=== PATIENT | male | born 1975 | race Caucasian/White ===

== ENCOUNTER 2016-07-03 18:50 | Inpatient (IN) | payer BC, MEDICAID ==
[2016-07-03] MEDS ORDERED: IOPAMIDOL 370 (76%) 100 ML VIAL IV ONE (18:51)
[2016-07-03 20:27] LABS: ABSOLUTE NEUTROPHIL COUNT 6.2 K/mm3 (1.8-7.7); BASO # 0.1 K/mm3 (0.0-0.2); BASO % 0.8 % (0.2-1.0); EOS # 0.1 (0.0-0.5); HEMATOCRIT 43.1 % (32.0-52.0); HEMOGLOBIN 14.3 gm/l (14.0-18.0); IMM NEUT # 0.1 K/mm3 (0-0.2); IMM NEUT% 0.5 % (0-1); LYMPH # 2.7 (1.0-4.8); LYMPH % 27.4 % (15-45); MEAN CELL VOLUME 93.5 fl (80.0-94.0); MEAN CORPUSCULAR HGB CONC 33.2 g/dl (33.0-37.0); MEAN PLATELET VOLUME 9.2 fl (7.4-10.4); MONO # 0.7 (0.0-0.8); NEUT % 63.3 % (43-75); PLATELET COUNT 286 K/mm3 (130-400)
[2016-07-03] MEDS ORDERED: MORPHINE SULFATE 4 MG/ML SYRINGE ONE ×3 (20:29→21:16)
[2016-07-03 20:47] LABS: ALB/GLOB RATIO 1.4 (>1.0); ALBUMIN 4.3 gm/dL (3.5-5.7); CALCIUM 8.6 mg/dL (8.6-10.3); MAGNESIUM 1.4 mg/dL (1.9-2.7)
[2016-07-03 20:52] LABS: TROPONIN I < 0.01 ng/ml (0.0-0.06)
[2016-07-03 20:56] LABS: CKMB ISOENZYME 1.4 ng/ml (0.6-6.3)
[2016-07-03] MEDS ORDERED: MAGNESIUM SULFATE 1 G/100 ML 100 ML IV ONE (20:59)
[2016-07-03] MEDS ORDERED: ONDANSETRON 4 MG/2ML 2 ML VIAL ONE (21:49)
[2016-07-03] MEDS ORDERED: FAMOTIDINE 10 MG/ML 2ML VIAL ONE (22:11)
[2016-07-03 22:27] LABS: SPECIFIC GRAVITY 1.015 (1.001-1.030); URINE BILIRUBIN NEGATIVE (NEGATIVE); URINE BLOOD NEGATIVE (NEGATIVE); URINE GLUCOSE (UA) NEGATIVE (NEGATIVE); URINE LEUKOCYTE ESTERASE NEGATIVE (NEGATIVE); URINE NITRITE NEGATIVE (NEGATIVE); URINE PROTEIN NEGATIVE (NEGATIVE); URINE UROBILINOGEN NORMAL (0-1 mg/dl)
[2016-07-03 22:30] LABS: URINE APPEARANCE CLEAR; URINE COLOR YELLOW
[2016-07-03] MEDS ORDERED: BISACODYL 5 MG TABLET.EC PO PRN (22:56)
[2016-07-03] MEDS ORDERED: BLISTEX LIPSTICK 1 EACH TP PRN (22:56)
[2016-07-03] MEDS ORDERED: BISACODYL 10 MG SUP PR PRN (22:56)
[2016-07-03] MEDS ORDERED: SODIUM CHLORIDE 0.9% 100 ML IV PRN (22:56)
[2016-07-03] MEDS ORDERED: MENTHOL/CETYLPYRD 1 EACH LOZENGE PO PRN (22:56)
[2016-07-03 23:15] VITALS: BMI 31.8
[2016-07-03] MEDS: SODIUM CHLORIDE 0.9% 1,000 ML IV SCH (23:32)
[2016-07-03] MEDS: PANTOPRAZOLE SODIUM 40 MG VIAL IV SCH (23:32)
[2016-07-03] MEDS: HYDROMORPHONE HCL 1 MG/ML SYRINGE IV PRN (23:32)
[2016-07-04 00:09] LABS: AMPHETAMINES/METHAMPHETAMINES NEGATIVE (NEGATIVE); COCAINE NEGATIVE (NEGATIVE); MARIJUANA NEGATIVE (NEGATIVE); METHADONE NEGATIVE (NEGATIVE); OPIATES POSITIVE (NEGATIVE); TRICYCLIC ANTIDEPRESSANTS NEGATIVE (NEGATIVE)
[2016-07-04] MEDS: LORAZEPAM 2 MG/ML 1ML SDV IV PRN ×2 (00:38→04:14)
[2016-07-04] MEDS: HYDROMORPHONE HCL 1 MG/ML SYRINGE IV PRN ×7 (03:41→20:26)
[2016-07-04] MEDS: ONDANSETRON 4 MG/2ML 2 ML VIAL IV PRN ×4 (03:41→19:10)
[2016-07-04] MEDS: SODIUM CHLORIDE 0.9% 1,000 ML IV SCH ×5 (03:41→21:02)
[2016-07-04 06:09] LABS: HEMATOCRIT 37.6 % (32.0-52.0); HEMOGLOBIN 12.7 gm/l (14.0-18.0); MEAN CELL VOLUME 94.9 fl (80.0-94.0); MEAN CORPUSCULAR HEMOGLOBIN 32.1 pg (27.0-31.0); MEAN CORPUSCULAR HGB CONC 33.8 g/dl (33.0-37.0); RED CELL DISTRIBUTION WIDTH 12.2 % (11.5-14.5)
--- NOTE | 2016-07-04 06:40 | HP ---
Ok Saunders ADMIT DATE: 07/03/2016 CHIEF COMPLAINT: Abdominal pain. HISTORY OF PRESENT ILLNESS: Ok is a 40-year-old otherwise healthy male. He presented to the emergency room with about a 12 hour history of mid epigastric abdominal pain that has become severe. He has never had pain like this before. It has been associated with some nausea. No fevers, no chills, no diarrhea. Really no other complaints. In the emergency room he was worked up and found to have evidence of pancreatitis on both lab work and on CT. He was subsequently admitted to the hospitalist service for further treatment. REVIEW OF SYSTEMS: As noted above otherwise, negative. PAST MEDICAL HISTORY: None. PAST SURGICAL HISTORY: Spine surgery back in 2007. ALLERGIES: None. 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 SOCIAL HISTORY: He is with three young children at home. No tobacco use. He does occasionally drink alcohol, last time he drank alcohol was on Saturday (two days prior to this admission). No history of withdraw. FAMILY HISTORY: Mother with hypertension. Father with hypertension and a stroke. OBJECTIVE: VITAL SIGNS: Temperature 98.5, pulse 70, blood pressure 177/114, respirations 20, O2 sat 97% on room air. GENERAL: This is a well developed, well-nourished middle aged male. He does display pain behavior, but is able to answer questions appropriately. HEENT: Normocephalic. TM's are clear. Sclerae are anicteric. Orophyarnx: Mucosa is moist, no lesions. NECK: Supple without lymphadenopathy. LUNGS: Clear. HEART: Regular. ABDOMEN: He is exquisitely tender to palpation in the mid epigastrium. Does have voluntary guarding noted. Bowel tones are positive. No masses. EXTREMITIES: No edema. LABORATORY: CBC with a white count of 9.8, hemoglobin 14.3, hematocrit 43.1, platelets of 286. Chemistry panel, sodium 136, potassium 3.3, chloride 98, carbon dioxide 26, BUN 11, creatinine 0.9, glucose of 105, calcium 8.6, magnesium 1.4, total bilirubin 0.4, AST 24, ALT 23, alk phos 38, lipase is elevated at 90. Urinalysis is clear. DIAGNOSTICS: CT scan by verbal report has stranding around the head of the pancreas, I am awaiting official written report to review. ASSESSMENT: 1. Acute pancreatitis, alcohol induced versus idiopathic versus ?. Will go ahead and check lipid panel in the morning. Supportive care tonight with ice chips and sips of liquid only. IV medications for pain and nausea as needed. He does have a history of reflux symptoms. We will place him on twice daily intravenous proton pump inhibitor therapy as well. 2. Alcohol use. This may be a trigger for the above. No history of withdraw. We will hold off on placing him on CIWA protocol at this point though we will watch him closely and if he does display any signs or symptoms of withdraw we will initiate immediately. 3. Hypertension secondary to above. We will get his pain under control and monitor. I suspect once he is more comfortable his blood pressure should be improved. 4. Deep venous thrombosis prophylaxis is not indicated as the patient is fully ambulatory. Further care is dictated by clinic course. JOB: [id number]
[2016-07-04 06:50] LABS: ALB/GLOB RATIO 1.3 (>1.0); ALBUMIN 3.6 gm/dL (3.5-5.7); CALCIUM 7.6 mg/dL (8.6-10.3); CHOLESTEROL RISK RATIO 2.4 (4.0-6.7)
--- NOTE | 2016-07-04 08:15 | CT ---
ADDENDUM #1 IMPRESSION: 1. Acute pancreatitis of the head of the pancreas versus duodenitis. ORIGINAL REPORT ABD/PELVIS W/ CON COMPARISON: Abdomen ultrasound, 02/23/2012 HISTORY: Worsening epigastric pain that started earlier today, with chills, nausea, mild vomiting, diarrhea, and constipation. Normal white blood cell count. Elevated lipase. Decreased magnesium. Technique: No oral contrast. Intravenous injection 100 mL Isovue 370. Using a [employer] Aquilion [address], images were obtained from the diaphragm to the floor the pelvis. An automated dose reduction technique was used to minimize patient radiation dose. Dose information: CTDIvol (mGy): 13.00 DLP(mGycm): 663.90 FINDINGS: Lung bases: Normal. Inferior mediastinum and heart: Normal. Liver: Normal. Gallbladder:Normal. Bile ducts: Normal. Pancreas: Edema within and surrounding the head of the pancreas and the adjacent second portion of the duodenum. Spleen: Normal. Adrenal glands: Normal. Kidneys: Normal. Ureters: Normal Urinary bladder: Normal. Prostate gland and seminal vesicles: Normal. Blood vessels: Normal Lymph nodes: Normal Stomach: Normal Duodenum: Normal Small intestine: Normal Appendix: Not visible. Colon: Normal Abdominal wall and supporting musculature: Normal Bones: L5-S1 moderate disc narrowing. IMPRESSION: 1. Appendicitis of the head of the appendix versus duodenitis. Preliminary report by statrad radiologist Merced Carlos MD 07/03/2016 at 22:16
--- NOTE | 2016-07-04 08:15 | RAD ---
CHEST - 1 VIEW COMPARISON: None HISTORY: Chest pain. FINDINGS: Views: Frontal chest. Lungs: The lungs are clear. Heart and vessels: Normal Trachea and bronchi: Normal Mediastinum and matthew: Normal Costophrenic sulci: Normal Chest wall and bones: Normal Upper abdomen: Normal. IMPRESSION: Negative one view chest.
--- NOTE | 2016-07-04 08:20 | PDOC43 ---
- Subjective Chief Complaint: Abd Pain Still with severe abd pain this AM- adequate control with IV meds. Subjective: Denies Shortness of Breath, Denies Cough, Denies Chest Pain, Denies Vomiting, Denies Fever, Denies Chills - Objective Vital Signs Temperature 98.1 F 07/04/16 06:52 Pulse Rate 72 07/04/16 06:52 Respiratory Rate 16 07/04/16 08:11 Blood Pressure 184/122 07/04/16 06:52 O2 Saturation by Pulse Oximetry 96 07/04/16 06:52 Oxygen Delivery Method Room Air Oxygen Flow Rate 0 Intake and Output 07/03/16 07/04/16 07/05/16 06:59 06:59 06:59 Intake Total 1507 Balance 1507 General: Alert, Oriented x3, Cooperative, No Acute Distress HEENT: Atraumatic Lungs: Clear to Auscultation Bilaterally Cardiovascular: Regular Rate and Rhythm Abdomen: Soft, Tenderness (Diffuse tenderness centered around mid-epigastrum.), Normal Bowel Sounds, Non-Distended Extremities: Normal Pulses, No Edema Laboratory 07/04/16 05:30 07/04/16 05:30 Laboratory Tests 07/03/16 07/04/16 20:15 05:30 Triglycerides 187 H Cholesterol 163 Cholesterol Risk Factr 2.4 L LDL Cholesterol 57 L VLDL Cholesterol 37 HDL Cholesterol 69 Lipase 90 H 104 H Current Medications: Current meds reviewed in EMR. - Problems: Assessment/Plan (1) Pancreatitis Qualifiers: Chronicity: acute Pancreatitis type: unspecified pancreatitis type Acute pancreatitis complication: no infection or necrosis Qualifier Code: ( K85.90) Acute pancreatitis without necrosis or infection, unspecified Status : AcuteAssessment/Plan: Acute pancreatitis. Etiology is presumed Etoh-ic vs idiopathic. Con't supportive care with aggressive IVF, IV meds for pain/nausea. (2) HTN (hypertension) Qualifiers: Hypertension type: essential hypertension Qualifier Code: (I10) Essential (primary) hypertension Status: ChronicAssessment/Plan: Still significantly elevated in spite of pain relief. Start IV metoprolol. VTE Prophylaxis: Lovenox Disposition: Anticipate d/c home in 2-3 days
[2016-07-04] MEDS: METOPROLOL TARTRATE 1 MG/ML 5ML VIAL IV SCH ×3 (08:51→20:25)
[2016-07-04] MEDS: PANTOPRAZOLE SODIUM 40 MG VIAL IV SCH ×2 (11:28→23:26)
[2016-07-04] MEDS ORDERED: ENALAPRILAT DIHYDRATE 1.25 MG/ML 1ML VIAL IV SCH (12:05)
[2016-07-04] MEDS ORDERED: ENALAPRILAT DIHYDRATE 1.25 MG/ML 1ML VIAL IV ONE (13:32)
[2016-07-04] MEDS: HYDROMORPHONE HCL 2 MG/ML SYRINGE IV PRN (22:18)
[2016-07-05] MEDS: HYDROMORPHONE HCL 2 MG/ML SYRINGE IV PRN ×3 (00:31→05:25)
[2016-07-05] MEDS: ENALAPRILAT DIHYDRATE 1.25 MG/ML 1ML VIAL IV SCH ×2 (00:31→12:53)
[2016-07-05] MEDS: SODIUM CHLORIDE 0.9% 1,000 ML IV SCH ×4 (01:34→12:26)
[2016-07-05] MEDS: METOPROLOL TARTRATE 1 MG/ML 5ML VIAL IV SCH ×4 (02:15→18:17)
[2016-07-05 06:12] LABS: HEMATOCRIT 35.5 % (32.0-52.0); HEMOGLOBIN 11.5 gm/l (14.0-18.0); MEAN CELL VOLUME 99.2 fl (80.0-94.0); MEAN CORPUSCULAR HEMOGLOBIN 32.1 pg (27.0-31.0); MEAN CORPUSCULAR HGB CONC 32.4 g/dl (33.0-37.0); RED CELL DISTRIBUTION WIDTH 12.5 % (11.5-14.5)
[2016-07-05 06:29] LABS: ALB/GLOB RATIO 1.3 (>1.0); ALBUMIN 3.6 gm/dL (3.5-5.7); CALCIUM 7.5 mg/dL (8.6-10.3)
[2016-07-05] MEDS: PANTOPRAZOLE SODIUM 40 MG VIAL IV SCH ×2 (10:24→23:10)
[2016-07-05] MEDS: ONDANSETRON 4 MG/2ML 2 ML VIAL IV PRN ×2 (10:28→23:10)
[2016-07-05] MEDS: HYDROMORPHONE HCL 1 MG/ML SYRINGE IV PRN ×2 (10:30→23:10)
--- NOTE | 2016-07-05 11:59 | PDOC43 ---
- Subjective Chief Complaint: Abd Pain Patient reported to be nauseated and had some pain this am, although lipase normal. Pain med helpful. Still on sips and chips, - Objective Vital Signs Temperature 99.5 F 07/05/16 11:52 Pulse Rate 111 07/05/16 11:52 Respiratory Rate 18 07/05/16 11:52 Blood Pressure 197/117 07/05/16 11:52 O2 Saturation by Pulse Oximetry 94 07/05/16 11:52 Oxygen Delivery Method Room Air Oxygen Flow Rate 0 Vital Signs Last 12 Hours Temp Pulse Resp BP Pulse Ox 07/05/16 11:52 99.5 F 111 18 197/117 94 07/05/16 08:00 98.6 F 94 17 152/101 94 07/05/16 05:12 16 07/05/16 04:08 98.9 F 98 16 126/89 91 07/05/16 00:23 18 07/04/16 23:58 98.6 F 91 18 146/104 95 Intake and Output 07/03/16 07/04/16 07/05/16 23:59 23:59 23:59 Intake Total 3412 8214 Output Total 1000 1050 Balance 2412 7164 General: Alert, Cooperative, No Acute Distress HEENT: Other (reported to be quite hard of hearing) Cardiovascular: Regular Rate and Rhythm Abdomen: Soft, Tenderness (mild tenderness noted, no rebound), Involuntary Guarding (poss guarding suggested.), Hypoactive Bowel Sounds, Non-Distended Extremities: No Edema, No Tenderness Neurological: Normal Speech, Other (reported to be hard of hearing) Psych/Mental Status: Normal Affect Laboratory 07/05/16 05:30 07/05/16 05:30 07/05/16 05:30 RBC 3.58 L MCV 99.2 H MCH 32.1 H MCHC 32.4 L BUN 6 L Estimated GFR 107 H Calcium 7.5 L Laboratory Tests 07/03/16 07/04/16 07/05/16 20:15 05:30 05:30 Triglycerides 187 H Lipase 90 H 104 H 57 Current Medications: Current meds reviewed in EMR. Active Medications Benzocaine/Menthol (Cepacol) 1 each PO PRN PRN PRN Reason: Sore Throat Bisacodyl (Dulcolax) 10 mg [place] DAILY PRN PRN Reason: Constipation Bisacodyl (Dulcolax) 5 mg PO DAILY PRN PRN Reason: Constipation Enalaprilat (Vasotec) 5 mg IV Q12H [facility] Last Admin: 07/05/16 00:31 Dose: 5 mg Hydromorphone HCl (Dilaudid) 1 - 3 mg IV Q2H PRN PRN Reason: Pain Last Admin: 07/05/16 10:30 Dose: 1 mg Hydromorphone HCl (Dilaudid) 1 - 3 mg IV Q2H PRN PRN Reason: Pain Last Admin: 07/05/16 05:25 Dose: 2 mg Sodium Chloride (Sodium Chloride 0.9%) 100 mls @ 25 mls/hr IV PRN PRN PRN Reason: Flush Sodium Chloride (Sodium Chloride 0.9%) 1,000 mls @ 250 mls/hr IV .Q4H [facility] Last Admin: 07/05/16 08:46 Dose: 250 mls/hr Lorazepam (Ativan) 1 mg IV Q4H PRN PRN Reason: Anxiety Last Admin: 07/04/16 04:14 Dose: 1 mg Metoprolol Tartrate (Lopressor) 2.5 mg IV Q6H [facility] Last Admin: 07/05/16 08:08 Dose: 2.5 mg Ondansetron HCl (Zofran) 4 mg IV Q3H PRN PRN Reason: Nausea/Vomiting Last Admin: 07/05/16 10:28 Dose: 4 mg Pantoprazole Sodium (Protonix) 40 mg IV Q12H [facility] Last Admin: 07/05/16 10:24 Dose: 40 mg Petrolatum/Paraffin/Mineral Oil (Blistex) 1 each TP PRN PRN PRN Reason: Dry and/or chapped lips Sodium Chloride (Normal Saline 10ml Flush) 10 - 50 ml IV PRN PRN PRN Reason: IV Flush Last Admin: 07/05/16 10:24 Dose: 10 ml Sodium Chloride (Normal Saline 10ml Flush) 10 ml IV Q8HR [facility] Last Admin: 07/05/16 08:17 Dose: Not Given - Problems: Assessment/Plan (1) Pancreatitis Qualifiers: Chronicity: acute Pancreatitis type: unspecified pancreatitis type Acute pancreatitis complication: no infection or necrosis Qualifier Code: ( K85.90) Acute pancreatitis without necrosis or infection, unspecified Status : AcuteAssessment/Plan: Lipase now normal range, but still having pain. Acute pancreatitis. Etiology is presumed alcohol vs idiopathic. Checking U/S for stones. With ongoing pain despite resolution of lipase, consider consult Dr Dominguez for scope - eval for duodenal ulcer/duodenitis. Con't IV meds for pain/nausea. (2) HTN (hypertension) Qualifiers: Hypertension type: essential hypertension Qualifier Code: (I10) Essential (primary) hypertension Status: ChronicAssessment/Plan: Still significantly elevated in spite of pain relief. Increased metoprolol, continue enalaprilat. VTE Prophylaxis: Lovenox Disposition: Anticipate d/c home in 1-2 days
[2016-07-05] MEDS: D5 1/2NS with 20 mEq KCL 1,000 ML IV SCH ×2 (12:49→23:09)
--- NOTE | 2016-07-05 13:03 | US ---
LIMITED ABDOMINAL ULTRASOUND HISTORY: Abdominal pain x1 week. Limited sonography of the right upper quadrant performed. Correlation against 02/23/2012 study. FINDINGS: GALLBLADDER LENGTH: 8.7 cm. GALLBLADDER WALL THICKNESS: 2.5 mm. GALLBLADDER CONTENT: No stones or sludge identified. SONOGRAPHIC CORREIA'S SIGN: Not elicited. COMMON BILE DUCT CALIBER: 3 mm. REGIONAL FREE FLUID: None. IMPRESSION: Normal sonographic appearance of the gallbladder. No findings of cholelithiasis, wall thickening, or biliary dilatation. A voicemail message was left for the hospitalist clinical service on 07/05/2016 at 1300 hours. Results were electronically transmitted to the electronic medical record.
[2016-07-05] MEDS: ACETAMINOPHEN 500 MG TABLET PO PRN (15:50)
[2016-07-05] MEDS ORDERED: METOPROLOL TARTRATE 1 MG/ML 5ML VIAL IV SCH (18:00)
[2016-07-06] MEDS: METOPROLOL TARTRATE 1 MG/ML 5ML VIAL IV SCH ×2 (00:45→05:52)
[2016-07-06] MEDS: ENALAPRILAT DIHYDRATE 1.25 MG/ML 1ML VIAL IV SCH (01:49)
[2016-07-06] MEDS: HYDROMORPHONE HCL 1 MG/ML SYRINGE IV PRN (05:55)
[2016-07-06 06:11] LABS: ABSOLUTE NEUTROPHIL COUNT 5.4 K/mm3 (1.8-7.7); BASO % 0.5 % (0.2-1.0); EOS # 0.4 (0.0-0.5); EOS % 5.4 % (0.9-2.9); HEMATOCRIT 32.6 % (32.0-52.0); HEMOGLOBIN 10.7 gm/l (14.0-18.0); IMM NEUT% 0.4 % (0-1); LYMPH # 1.5 (1.0-4.8); LYMPH % 18.7 % (15-45); MEAN CELL VOLUME 97.9 fl (80.0-94.0); MEAN CORPUSCULAR HEMOGLOBIN 32.1 pg (27.0-31.0); MEAN CORPUSCULAR HGB CONC 32.8 g/dl (33.0-37.0); MEAN PLATELET VOLUME 9.4 fl (7.4-10.4); MONO # 0.5 (0.0-0.8); MONO % 5.8 % (4-12); NEUT % 69.2 % (43-75); PLATELET COUNT 172 K/mm3 (130-400); RED CELL DISTRIBUTION WIDTH 12.1 % (11.5-14.5)
[2016-07-06] MEDS ORDERED: ONDANSETRON 4 MG/2ML 2 ML VIAL IV PRN ×2 (06:22→06:24)
[2016-07-06] MEDS ORDERED: MIDAZOLAM HCL 5 MG/5 ML VIAL IV PRN (06:22)
[2016-07-06] MEDS ORDERED: LIDOCAINE 1% 2 ML VIAL ID PRN (06:22)
[2016-07-06] MEDS ORDERED: FENTANYL 250 MCG/5 ML AMP IV PRN (06:22)
[2016-07-06 06:29] LABS: ALB/GLOB RATIO 1.1 (>1.0); ALBUMIN 3.4 gm/dL (3.5-5.7); CALCIUM 8.1 mg/dL (8.6-10.3)
[2016-07-06] MEDS ORDERED: LACTATED RINGERS 1,000 ML IV SCH ×2 (06:30)
[2016-07-06] MEDS ORDERED: PROPOFOL 20 ML IV ONE (08:30)
[2016-07-06] MEDS ORDERED: AMLODIPINE BESYLATE 5 MG TABLET PO ONE (09:24)
[2016-07-06] MEDS: PANTOPRAZOLE SODIUM 40 MG VIAL IV SCH ×2 (09:44→11:14)
[2016-07-06] MEDS: ONDANSETRON 4 MG/2ML 2 ML VIAL IV PRN (09:45)
[2016-07-06] MEDS: ACETAMINOPHEN 500 MG TABLET PO PRN (09:46)
[2016-07-06] MEDS: D5 1/2NS with 20 mEq KCL 1,000 ML IV SCH (10:58)
[2016-07-06] MEDS ORDERED: SUCRALFATE 1 G TABLET PO SCH (11:00)
[2016-07-06] MEDS ORDERED: CHLORDIAZEPOXIDE HCL 10 MG CAPSULE PO PRN (11:02)
--- NOTE | 2016-07-06 12:00 | PDOC43 ---
- Subjective Chief Complaint: Abd Pain RN reports pt eager to go home, but has been noted to have significant elevated BP. No vomiting, eating some, kept fluids down ok. Has been given several BP medications while here. Had endoscopy, showing duodenitis today. Pt reports feeling a little gassy after scope, but had some fruit for lunch. Pain better. - Objective Vital Signs Temperature 99.0 F 07/06/16 10:30 Pulse Rate 74 07/06/16 10:30 Respiratory Rate 20 07/06/16 10:30 Blood Pressure 184/106 07/06/16 10:30 O2 Saturation by Pulse Oximetry 96 07/06/16 10:30 Oxygen Delivery Method Room Air Oxygen Flow Rate 0 Vital Signs Last 12 Hours Temp Pulse Resp BP Pulse Ox 07/06/16 10:30 99.0 F 74 20 184/106 96 07/06/16 10:15 99.2 F 70 20 196/110 96 07/06/16 10:00 98.9 F 70 20 180/116 98 07/06/16 09:35 99.2 F 76 20 182/108 95 07/06/16 09:25 99.2 F 76 20 182/108 95 07/06/16 05:35 20 07/06/16 04:00 100.1 F 78 20 175/105 96 07/06/16 01:30 100.3 F 87 20 168/103 96 07/06/16 00:30 18 last BP 142/82 L, 166/101 R; after amlodipine Intake and Output 07/04/16 07/05/16 07/06/16 23:59 23:59 23:59 Intake Total 3412 78093 1065 Output Total 1000 3225 1650 Balance 2412 7327 -585 General: Alert HEENT: Atraumatic Lungs: Clear to Auscultation Bilaterally, Normal Air Movement Abdomen: Soft, Tenderness (mild tenderness upper epigastric area), Normal Bowel Sounds, Non-Distended Extremities: No Edema, No Tenderness Skin: Normal Color Neurological: Normal Speech, Other (no tremor, no sweating.) Psych/Mental Status: Normal Affect, Normal Mood Laboratory 07/06/16 05:55 07/06/16 05:55 07/06/16 05:55 RBC 3.33 L MCV 97.9 H MCH 32.1 H MCHC 32.8 L BUN 5 L Estimated GFR 107 H Calcium 8.1 L Albumin 3.4 L Laboratory Tests 07/06/16 05:55 Calcium 8.1 L Total Bilirubin 0.8 AST 13 ALT 10 Alkaline Phosphatase 41 Total Protein 6.4 Albumin 3.4 L Lipase 45 Current Medications: Current meds reviewed in EMR. Active Medications Acetaminophen (Tylenol) 1,000 mg PO Q6H PRN PRN Reason: Pain or Temperature > 100.5 F Last Admin: 07/06/16 09:46 Dose: 1,000 mg Benzocaine/Menthol (Cepacol) 1 each PO PRN PRN PRN Reason: Sore Throat Bisacodyl (Dulcolax) 10 mg [place] DAILY PRN PRN Reason: Constipation Bisacodyl (Dulcolax) 5 mg PO DAILY PRN PRN Reason: Constipation Chlordiazepoxide HCl (Librium) 10 mg PO Q4H PRN PRN Reason: Anxiety Last Admin: 07/06/16 11:21 Dose: 10 mg Enalaprilat (Vasotec) 5 mg IV Q12H [facility] Last Admin: 07/06/16 01:49 Dose: 5 mg Fentanyl Citrate (Fentanyl) 25 - 50 mcg IV .Q5M PRN PRN Reason: Pain Hydromorphone HCl (Dilaudid) 1 - 3 mg IV Q2H PRN PRN Reason: Pain Last Admin: 07/05/16 05:25 Dose: 2 mg Sodium Chloride (Sodium Chloride 0.9%) 100 mls @ 25 mls/hr IV PRN PRN PRN Reason: Flush Potassium Chloride/Dextrose/Sod Cl (D51/2ns With 20 Meq Kcl) 1,000 mls @ 100 mls/hr IV .Q10H [facility] Last Admin: 07/06/16 10:58 Dose: Not Given Lactated Ringer's (Lactated Ringers) 1,000 mls @ 100 mls/hr IV .Q10H [facility] Last Admin: 07/06/16 08:11 Dose: Not Given Lidocaine HCl (Lidocaine 1%) 0.1 ml ID X1 PRN PRN Reason: IV start Lorazepam (Ativan) 1 mg IV Q4H PRN PRN Reason: Anxiety Last Admin: 07/04/16 04:14 Dose: 1 mg Metoprolol Tartrate (Lopressor) 5 mg IV Q6H [facility] Last Admin: 07/06/16 05:52 Dose: 5 mg Midazolam HCl (Versed) 1 - 2 mg IV .Q5M PRN PRN Reason: Sedation Ondansetron HCl (Zofran) 4 mg IV Q3H PRN PRN Reason: Nausea/Vomiting Last Admin: 07/06/16 09:45 Dose: 4 mg Ondansetron HCl (Zofran) 4 mg IV X1 PRN PRN Reason: Nausea/Vomiting Pantoprazole Sodium (Protonix) 40 mg IV Q12H [facility] Last Admin: 07/06/16 11:14 Dose: Not Given Petrolatum/Paraffin/Mineral Oil (Blistex) 1 each TP PRN PRN PRN Reason: Dry and/or chapped lips Sodium Chloride (Normal Saline 10ml Flush) 10 - 50 ml IV PRN PRN PRN Reason: IV Flush Last Admin: 07/06/16 09:45 Dose: 10 ml Sodium Chloride (Normal Saline 10ml Flush) 10 ml IV Q8HR [facility] Last Admin: 07/06/16 09:45 Dose: 10 ml Sucralfate (Carafate) 1 g PO ACBEDTIME [facility] Last Admin: 07/06/16 11:21 Dose: 1 g - Problems: Assessment/Plan (1) Pancreatitis Qualifiers: Chronicity: acute Pancreatitis type: unspecified pancreatitis type Acute pancreatitis complication: no infection or necrosis Qualifier Code: ( K85.90) Acute pancreatitis without necrosis or infection, unspecified Status : AcuteAssessment/Plan: Lipase now normal, some mild pain, attributed to duodenitis. Acute pancreatitis. Etiology is presumed alcohol vs idiopathic vs associated with duodenitis. Anticipate DC to home today (2) HTN (hypertension) Qualifiers: Hypertension type: essential hypertension Qualifier Code: (I10) Essential (primary) hypertension Status: ChronicAssessment/Plan: Pt with FHx HTN. Withdrawal vs essential HTN. Continue on meds, anticipate going to all qd meds, follow up as outpt VTE Prophylaxis: Lovenox Disposition: Anticipate d/c home today
[2016-07-06] MEDS ORDERED: ATENOLOL 100 MG TABLET PO ONE (12:40)
[2016-07-06] MEDS ORDERED: LOSARTAN POTASSIUM 50 MG TABLET PO SCH (12:45)
[2016-07-06 12:53] LABS: HELICOBACTER PYLORII DETECTION NEGATIVE (NEGATIVE)
[2016-07-06 13:24] VITALS: BP 169/100
--- NOTE | 2016-07-06 13:55 | DS ---
Ok Saunders [id number] DATE OF ADMISSION: 07/03/2016 DATE OF DISCHARGE: 07/06/2016 PHYSICIANS CONSULTED: Dr. Osei Dominguez for upper endoscopy performed 07/06/2016. DISCHARGE DIAGNOSES: 1. Pancreatitis. 2. Marked hypertension. 3. Regular alcohol use as a contributor for both of these. 4. Duodenitis. 5. Hypertension. 6. Mild hypomagnesemia. 7. Borderline low WA interval. REASON FOR ADMISSION: The patient is a 40-year-old male who presented to the emergency department with a 12 hour history of mid epigastric abdominal pain which has become severe. No fevers, chills, or diarrhea. In the emergency department he was noted to have evidence of pancreatitis on lab work and on CT and was referred to the hospitalist service. His lab data showed a white blood cell count of 9.8, hemoglobin 14.3, platelets 286. Chemistry profile showed a troponin less than 0.01, CK-MB of 1.4, lipase was 90. Sodium 136, potassium 3.3, chloride 98, CO2 26, BUN 11, creatinine 0.9, glucose 105, magnesium 1.4, liver enzymes normal. His urinalysis was negative. Urine drug screen only positive for opiates, his blood level for ethanol was 0. His CT had shown acute pancreatitis to the head of the pancreas versus duodenitis. He also had a chest x-ray which showed no acute findings and EKG had shown a normal sinus rhythm with a short WA interval of 107. He was referred to the hospitalist service and had a GI rest and received pain and nausea medicines. He had improvement in his labs after an initial peak of lipase at 104 on 07/04/2016, it trended downward to 7, then 45. A mild hypokalemia was noted and received replacement. His lipids were performed and showed a mild hypertriglyceridemia at 187, HDL of 69, LDL of 57. He did receive Protonix, but continued to have some pain despite having a normalized lipase and Dr. Dominguez was consulted for upper endoscopy which was performed 07/06/2016. Preliminary report on this had shown moderate duodenitis without evidence of ulceration and he was placed on sucralfate and continued on Protonix. Patient also demonstrated some fairly marked hypertension during his stay here. He had blood pressures with systolics as high as 197 and diastolic into the 120 range initially. He received metoprolol and Enalaprilat initially with moderate improvement and later amlodipine was added and his blood pressure improved to 142/82 on the left and 166/101 on the right. His T-max was 100.3 during his stay here. His heart rate generally was in the 80's or lower and he did not show substantial other evidence to suggest severe withdraw. He was able to eat after undergoing endoscopy and was eager for discharge to home. DISCHARGE MEDICATIONS: He is anticipated to be discharged to home with the following medications: 1. Amlodipine 5 mg daily. 2. Atenolol 100 mg daily. 3. Losartan 100 mg daily for blood pressure. He is to check is blood pressure on an outpatient setting. He is given a printout on a diet and asked to follow up with Dr. Vazquez regarding this. 4. For his stomach he will be on omeprazole 20 mg daily and sucralfate 1 gm at meals and at bedtime. FOLLOW UP: He is to follow up with Dr. Dominguez in the next 1 to 2 weeks regarding this as well as the H-pylori testing and biopsy performed. Patient has appointments with Beth Copeland on 07/10/2016 at 1:30 p.m. DISCHARGE INSTRUCTIONS: He is advised that he could consider return to work if feeling well on SaturdayJuly 09, but if having marked worsening of symptoms or feeling weak or bad he will seek medical attention. He is encouraged to avoid alcohol and avoid antiinflammatories as he could provoke worsened duodenitis. CONDITION ON DISCHARGE: Improved. JOB: CC: Dr. Angelica Vazquez
--- NOTE | 2016-07-12 14:21 | SURGPATH ---
[facility] [address] [place] [id number] Patient Name: LEIF MIXON MR#: [id number] : 1975 Gender: M Specimen #: [id number] Collected: 07/06/2016 Received: 07/09/2016 Reported: 07/10/2016 Submitting Phys: NNAMDI GUTIERREZ Copy To Phys: [facility] ERICK ARORA Clinical History / Pre-Operative Diagnosis: ABDOMINAL PAIN; ABNORMAL CT Specimen Source / Surgical Procedure Performed: #1-DUODENAL; #2-ANTRAL Interpretation: 1. DUODENUM, BIOPSY: - NO DIAGNOSTIC ABNORMALITIES 2. STOMACH, ANTRUM, BIOPSY: - OXYNTIC GASTRIC MUCOSA WITH NO DIAGNOSTIC ABNORMALITIES Electronically Signed Out Olimpia Doe M.D. Gross Description: #1 The specimen is received in a formalin filled container labeled with the patient's name and "duodenal biopsy". A single henderson biopsy is 0.4 cm. Totally embedded in cassette #1. #2 The specimen is received in a formalin filled container labeled with the patient's name and "antral biopsy". A single henderson biopsy is 0.3 cm. Totally embedded in cassette #2. Orville Roblero Microscopic Description: Part 1: Sections show duodenal mucosa with overall intact architecture with a villous to crypt ratio of three to one. No increased intraepithelial lymphocytes, gastric metaplasia, active duodenitis, or evidence of Giardia are seen on routine stain. No malignancy is seen. Part 2: Sections show gastric oxyntic mucosa with overall intact architecture. No significant active or chronic inflammation is seen. No Helicobacter organisms are seen on routine stain. No dysplasia or malignancy is seen. 1: [id number] 2: 83890 R10.10
== END 2016-07-06 14:35 | disposition home or self-care (01) | DRG 440 ==
LOC: ED 18:50 → MS 22:25
PROVIDERS: ADMIT Family Medicine; ATTEND Family Medicine
PROC: 0DB98ZX Excision of Duodenum, Via Natural or Artificial Opening Endoscopic, Diagnostic (ICD-10-PCS; principal; 2016-07-06)
PROC: 0DB68ZX Excision of Stomach, Via Natural or Artificial Opening Endoscopic, Diagnostic (ICD-10-PCS; 2016-07-06)
DX: K85.20 Alcohol induced acute pancreatitis without necrosis or infection (principal); I10 Essential (primary) hypertension; K29.80 Duodenitis without bleeding; E83.42 Hypomagnesemia